=== PATIENT | male | born 1985 | race Caucasian/White ===

== ENCOUNTER 2017-02-26 09:03 | Emergency (ER) | payer OTHER, MEDICAID ==
[2017-02-26 09:12] VITALS: PULSE 88; RESP 16; TEMP 98.9; BMI 22.6
[2017-02-26 09:15] VITALS: BP 144/85; O2SAT 98
[2017-02-26] MEDS ORDERED: TDAP Vaccine 0.5 mL Syr IM ONE (09:33)
--- NOTE | 2017-02-26 09:36 | ED PDOC ---
Arrival/HPI - General Chief Complaint: Lower Extremity Problem/Injury Time Seen by Provider: 02/26/17 09:30 Historian: Patient - History of Present Illness Narrative History of Present Illness (Text): 02/26/17 09:31 This 31 yo male presents to this ED c/o right foot pain x 2 days. Patient stated an heavy object fell on his right foot. He stated this incident happened at work. He stated the worse impact was on his 1st and 2nd toes. Patient has been placing ice pack on his toes. Denies other complains. Patient stated he took 2 Percocets from his father last night for pain. Time/Duration: Other (2 days) Context: Home Past Medical History - Provider Review Nursing Documentation Reviewed: Yes - Infectious Disease Hx of Infectious Diseases: None - Tetanus Immunization Tetanus Immunization: Unknown - Past Medical History Past Medical History: No Previous - Cardiac Hx Cardiac Disorders: No - Pulmonary Hx Respiratory Disorders: Yes Hx Asthma: Yes - Neurological Hx Neurological Disorder: No - HEENT Hx HEENT Disorder: No - Renal Hx Renal Disorder: No - Endocrine/Metabolic Hx Endocrine Disorders: No - Hematological/Oncological Hx Blood Disorders: No - Integumentary Hx Dermatological Disorder: No - Musculoskeletal/Rheumatological Hx Musculoskeletal Disorders: No - Gastrointestinal Hx Gastrointestinal Disorders: No - Genitourinary/Gynecological Hx Genitourinary Disorders: No - Psychiatric Hx Psychophysiologic Disorder: No Hx Substance Use: Yes (marijuana weekly) - Past Surgical History Past Surgical History: No Previous - Anesthesia Hx Anesthesia: No Hx Anesthesia Reactions: No Hx Malignant Hyperthermia: No Family/Social History - Physician Review Nursing Documentation Reviewed: Yes Family/Social History: No Known Family HX Smoking Status: Light Smoker < 10 Cigarettes Daily Hx Alcohol Use: No Hx Substance Use: Yes (marijuana weekly) Allergies/Home Meds Allergies/Adverse Reactions: Allergies shellfish derived Allergy (Verified 02/26/17 09:15) SHORTNESS OF BREATH Review of Systems - Review of Systems Constitutional: Normal. absent: Fatigue, Weight Change, Fevers Eyes: Normal ENT: Normal Respiratory: Normal. absent: SOB, Cough, Sputum, Wheezing Cardiovascular: Normal Gastrointestinal: Normal Genitourinary Male: Normal Musculoskeletal: Other (foot pain) Skin: Normal Neurological: Normal Endocrine: Normal Hemo/Lymphatic: Normal Psychiatric: Normal Physical Exam Vital Signs Temp Pulse Resp BP Pulse Ox 02/26/17 09:12 98.9 F 88 16 144/85 98 02/26/17 09:11 98.9 F 88 16 144/55 L 99 Temperature: Afebrile Blood Pressure: Normal Pulse: Regular Respiratory Rate: Normal Appearance: Positive for: Well-Appearing, Non-Toxic, Comfortable Pain Distress: None Mental Status: Positive for: Alert and Oriented X 3 - Systems Exam Head: Present: Atraumatic, Normocephalic Pupils: Present: PERRL Extroacular Muscles: Present: EOMI Conjunctiva: Present: Normal Mouth: Present: Moist Mucous Membranes Neck: Present: Normal Range of Motion Respiratory/Chest: Present: Clear to Auscultation, Good Air Exchange. No: Respiratory Distress, Accessory Muscle Use Cardiovascular: Present: Regular Rate and Rhythm, Normal S1, S2. No: Murmurs Abdomen: Present: Normal Bowel Sounds. No: Tenderness, Distention, Peritoneal Signs Back: Present: Normal Inspection Upper Extremity: Present: Normal Inspection, Normal ROM, NORMAL PULSES, Neurovascularly Intact. No: Cyanosis, Edema Lower Extremity: Present: NORMAL PULSES, Neurovascularly Intact, Capillary Refill < 2 s, Other ((+) right 1 st is swollen with superficial abrasion. No deformity). No: Edema, CALF TENDERNESS Neurological: Present: GCS=15, CN II-XII Intact, Speech Normal, Motor Func Grossly Intact, Normal Sensory Function, Normal Cerebellar Funct, Gait Normal Skin: Present: Warm, Dry, Normal Color. No: Rashes Psychiatric: Present: Alert, Oriented x 3, Normal Insight, Normal Concentration Medical Decision Making ED Course and Treatment: 02/26/17 10:41 Re-evaluation. Patient feels better. Discussed results and plan with patient who expresses understanding. All questions answered and there is agreement with the plan to discharge home with instructions. Patient stable for discharge. Return if symptoms persist or worsen Post Op shoe was applied to right foot. RICE was recommended. To call Workers Comp. Return to ED if pain worsen Re-evaluation Time: 10:43 Reassessment Condition: Re-examined, Improved - RAD Interpretation Narrative RAD Interpretations (Text): 02/26/17 10:46 foot x-rays: No fracture or dislocation Radiology Orders: 02/26/17 09:30 FOOT RIGHT 3 VIEWS ROUTINE [RAD] Stat - Medication Orders Current Medication Orders: Discontinued Medications Ibuprofen (Motrin Tab) 600 mg PO STAT STA Stop: 02/26/17 09:36 Last Admin: 02/26/17 09:50 Dose: 600 mg Ibuprofen (Motrin Tab) Confirm Administered Dose 600 mg .ROUTE .STK-MED ONE Stop: 02/26/17 09:45 Tetanus/Reduced Diphtheria/Acell Pertussis (Boostrix Vaccine Inj) 0.5 ml IM .ONCE ONE Stop: 02/26/17 09:34 Last Admin: 02/26/17 10:00 Dose: 0.5 ml Disposition/Present on Arrival - Present on Arrival Any Indicators Present on Arrival: No History of DVT/PE: No History of Uncontrolled Diabetes: No Urinary Catheter: No History of Decub. Ulcer: No History Surgical Site Infection Following: None - Disposition Have Diagnosis and Disposition been Completed?: Yes Diagnosis: Toe abrasion, Contusion, toe Disposition: HOME/ ROUTINE Disposition Time: 10:43 Patient Plan: Discharge Patient Problems: Current Active Problems Problem Status Onset Contusion, toe Acute Toe abrasion Acute Condition: GOOD Discharge Instructions (ExitCare): Contusion in Adults (ED) Additional Instructions: Call private doctor for follow up visit in 1-2 days. Call Workers comp for further recommendation. Take medicationa s instructed. Clean toes with soap and water daily. Return to emergency if symptoms worsen. Prescriptions: Ibuprofen [Motrin] 600 mg PO Q8 PRN #20 tab PRN Reason: Pain, Severe (8-10) Referrals: [facility] [Outside] - Follow up with primary [facility] [Outside] - Follow up with primary Forms: WORK NOTE
--- NOTE | 2017-02-26 15:22 | RAD ---
PROCEDURE: Right Foot Radiographs. HISTORY: pain COMPARISON: None. FINDINGS: BONES: Normal. No fracture. JOINTS: Normal. SOFT TISSUES: Normal. OTHER FINDINGS: None. IMPRESSION: Normal right foot radiographs.
== END 2017-02-26 10:52 | disposition home or self-care (01) ==
LOC: ED 09:03
DX: S90.411A Abrasion, right great toe, initial encounter (principal); S90.111A Contusion of right great toe without damage to nail, initial encounter; W20.8XXA Other cause of strike by thrown, projected or falling object, initial encounter; Y92.89 Other specified places as the place of occurrence of the external cause; Y99.0 Civilian activity done for income or pay; Z23 Encounter for immunization; F17.210 Nicotine dependence, cigarettes, uncomplicated